=== PATIENT | female | born 1975 ===

== ENCOUNTER → 2019-01-01 00:07 | Outpatient (REF) | payer OTHER, SELFPAY ==
[2019-01-01 04:13] LABS: Free T3, Triiodothyronine Free 3.52 pg/mL (2.77-5.27); Free T4, Direct Thyroxine 0.94 ng/dL (0.78-2.19)
[2019-01-01 04:26] LABS: Thyroid Stimulating Hormone 1.42 uIU/mL (0.47-4.68)
== END ==
LOC: LAB 00:07
PROVIDERS: Visit Provider Family Medicine
DX: E07.9 Disorder of thyroid, unspecified (principal)
CPT/HCPCS: 36415; 84439; 84443; 84481